=== PATIENT | female | born 1975 | race Caucasian/White ===

== ENCOUNTER 2016-11-21 17:46 | Emergency (ER) | payer BC ==
[~2016-11-21] VITALS: Ht 162.6 cm; Wt 65.7 kg
[~2016-11-21 17:46] MED LIST: FIORICET WI1 CAPSULE PO; NO DOZ200 MG PO; PERCOCET 5/31 TABLET PO; PRENATAL1 EACH PO; PRILOSEC40 MG PO; ZOFRAN4 MG PO
[2016-11-21 18:39] LABS: ADD MIUA? YES; BILIRUBIN NEGATIVE; BLOOD NEGATIVE; COLOR YELLOW ((YELLOW)); GLUCOSE (STRIP) NEGATIVE; KETONES 5; LEUKOCYTES NEGATIVE; NITRITE NEGATIVE; PROTEIN (STRIP) NEGATIVE; SPECIFIC GRAVITY 1.021 (1.000-1.030); UROBILINOGEN 0.2 MG/DL (0.2-1.0)
[2016-11-21 18:54] LABS: BACTERIA RARE /HPF; EPITHELIAL CELLS RARE /HPF; HYALINE CASTS 0-5 /LPF; MUCUS 4+ /LPF; RED BLOOD CELLS 0-5 /HPF (0-5); UCUL ADDED? NO; WHITE BLOOD CELLS 0-5 /HPF (0-5)
[2016-11-21 19:01] LABS: MCH 30.3 PG (29.0-34.0); MCHC 34.4 G/DL (30.0-36.0); MCV 88.1 FL (83-99); MEAN PLAT.VOLUME 10.3 uM^3 (9.5-12.4); PLATELET COUNT 286 K/uL (156-360); RBC DIS.WIDTH-SD 38.9 % (39-53); RED BLOOD COUNT 4.88 M/uL (3.80-5.20); WHITE BLOOD COUNT 6.3 K/uL (4.1-10.2)
[2016-11-21 19:13] LABS: CHLORIDE 104 mEq/L (99-109); POTASSIUM 3.8 mEq/L (3.7-5.4); SODIUM 140 mEq/L (136-147)
[2016-11-21 19:15] LABS: GLUCOSE 101 mg/dL (70-99)
[2016-11-21 19:16] LABS: ANION GAP 10 MEQ/L (2-14)
[2016-11-21 19:17] LABS: TOTAL BILIRUBIN 0.5 mg/dL (0.0-1.0)
[2016-11-21 19:18] LABS: ALKALINE PHOSPHATASE 46 IU/L (3-129)
[2016-11-21 19:19] LABS: GFR ESTIMATE (CALCULATED) > 59 mL/min/
[2016-11-21 19:20] LABS: UREA NITROGEN (BUN) 10 mg/dL (9-23)
[2016-11-21 19:28] LABS: QUANTITATIVE HCG < 4.0 MIU/ML
[2016-11-21 21:21] LABS: CREATINE KINASE 61 IU/L (1-294)
[2016-11-21] MEDS ORDERED: ZOFRAN ODT4 MG PO (21:41)
[2016-11-21] MEDS ORDERED: BENTYL20 MG PO (21:41)
[2016-11-21] MEDS ORDERED: FIORICET 50-301 EACH PO (21:42)
[2016-11-21] MEDS ORDERED: MOTRIN800 MG PO (21:42)
[2016-11-21 22:17] VITALS: BP 123/83
== END 2016-11-21 22:32 | disposition home or self-care (01) ==
LOC: EME 17:46
DX: B34.9 Viral infection, unspecified (principal); R10.9 Unspecified abdominal pain; R11.2 Nausea with vomiting, unspecified; M79.1 Myalgia
CPT/HCPCS: 80053; 81003; 82550; 84702; 85027; 99281; 99285; J1885